=== PATIENT | female | born 1945 | race Caucasian/White ===

== ENCOUNTER 2017-06-26 17:39 | Inpatient (IN) ==
[2017-06-26 18:53] LABS: Basophils % 0.4 %; Eosinophils # 0.1 K/mcL (0.0-0.6); Eosinophils % 1.9 %; Hemoglobin 14.5 g/dL (11.5-15.4); Immature Granulocytes % 0.4 % (0-4); Lymphocytes # 1.2 K/mcL (0.6-4.6); Mean Corpuscular HGB Conc 33.7 g/dL (31.6-35.5); Mean Corpuscular Hemoglobin 29.1 pg (28.0-33.3); Mean Corpuscular Volume 86.2 fL (83.0-100.0); Mean Platelet Volume 9.4 fL (9.4-12.4); Monocytes # 0.9 K/mcL (0.0-1.3); Monocytes % 16.9 %; Platelet Count 300 K/mcL (140-400); Red Blood Count 4.99 M/mcL (3.82-4.97); Red Cell Distribution Width 12.5 % (11.5-14.5); Segmented Neutrophils % 57.4 %
--- NOTE | 2017-06-26 19:15 | Emergency Department Note ---
Disposition Clinical Impression: Small bowel obstruction Disposition: Admitted As Inpatient Condition: Good Time of Disposition: 21:42 General Adult HPI - General Chief complaint: ED Abdominal Pain Stated complaint: Possible bowel obstruction Time Seen by Provider: 06/26/17 18:08 Source: patient Mode of arrival: ambulatory Limitations: no limitations Nursing Notes Reviewed: Yes Vital Signs Reviewed: Yes - History of Present Illness HPI Narrative: 71-year-old female in no significant past medical history presented to the emergency department complaining of abdominal pain. Patient states starting on Sunday she started having diffuse abdominal pain and tenderness. She had one bowel movement that day which was normal for her. She had some nausea as well but no vomiting. She states her abdomen has felt more distended and hard than usual. She continued to have abdominal pain at a 2 out of 10 and today she followed up with her primary care physician. Primary care physician took A in x -ray of the abdomen which showed ileus versus small bowel obstruction was sent here for further workup. Patient states on her way over she had 2-3 loose bowel movements nonbloody. No vomiting. No fever. Pain Scale: 2 - Related Data Allergies Allergy/AdvReac Type Severity Reaction Status Date / Time Penicillins [PCN] Allergy Hives Verified 06/26/17 18:03 All systems ED: reviewed and negative except as stated. Constitutional: Denies: fever, chills Cardiovascular: Denies: chest pain, palpitations Respiratory: Denies: cough, dyspnea, wheezes Gastrointestinal: Reports: abdominal pain, nausea. Denies: vomiting, diarrhea Genitourinary: Denies: urgency, dysuria Integumentary: Denies: rash Neurological: Denies: headache, weakness, numbness, paresthesias Past Medical History - Past Medical History Attestation: Yes The following information was validated with the patient. Medical history: Reports: hyperlipidemia Psychiatric history: Reports: no psych history - Social History Smoking Status: Never smoker Alcohol use: Reports: none Drug use: Reports: none Physical Exam - General Limitations: no limitations General appearance: alert, in no apparent distress - Head Head exam: atraumatic, normocephalic, normal inspection - Eye Eye exam: Present: normal appearance. Absent: scleral icterus, conjunctival injection - ENT ENT exam: normal exam, mucous membranes moist - Neck Neck exam: Present: normal inspection. Absent: tenderness, meningismus - Chest Chest inspection: Present: normal inspection, symmetric chest wall rise. Absent : tenderness, rash - Respiratory Respiratory exam: Present: normal lung sounds bilaterally. Absent: respiratory distress, wheezes - Cardiovascular Cardiovascular exam: Present: regular rate, normal rhythm, normal heart sounds - Abdominal Exam Abdominal exam: Present: tenderness, distention. Absent: guarding, rebound, rigidity Abdominal tenderness: Present: diffuse, mild - Extremities Exam Extremities exam: Present: normal inspection, full ROM - Neurological Exam Neurological exam: Present: alert, oriented X3 - Psychiatric Psychiatric exam: Present: normal affect, normal mood - Skin Skin exam: Present: warm, intact Course Course Narrative: 71-year-old male presenting to the emergency department complaining of abdominal pain. X-ray completed today showed ileus versus small bowel obstruction. Patient does have distended abdomen on physical exam. She is alert and oriented 3 and room stable vital signs at this time. We will perform a CT of the abdomen and pelvis with by mouth and IV contrast along with basic lab work. Disposition pending these results. Patient agrees with this plan. - Reevaluation(s) Reevaluation #1: Patient's CT shows possible SBO. We will place the patient NPO and provide maintenance fluids at this time. Patient is alert and oriented x 3 in the room with stable vital signs. I spoke with the surgeon monomer recovery supervisor who agrees to accept the patient at this time. We will plan to admit the patient at this time. Patient agrees with this plan. Vital Signs Temperature 98.7 F 06/26/17 17:59 Pulse Rate 86 06/26/17 17:59 Respiratory Rate 16 06/26/17 17:59 Blood Pressure 120/77 06/26/17 17:59 O2 Sat by Pulse Oximetry 97 06/26/17 17:59 Temperature 98.1 F 06/26/17 22:31 Pulse Rate 74 06/26/17 22:31 Respiratory Rate 15 06/26/17 22:31 Blood Pressure 118/77 06/26/17 22:31 O2 Sat by Pulse Oximetry 96 06/26/17 22:31 Oxygen Delivery Oxygen Delivery Room Air Medical Decision Making - Lab Data Result diagrams: 06/26/17 18:37 06/26/17 18:37 Lab Results 06/26/17 06/26/17 06/26/17 Range/Units 18:37 18:37 18:37 WBC 5.2 (4.3-11.1) K/mcL RBC 4.99 H (3.82-4.97) M/mcL Hgb 14.5 (11.5-15.4) g/dL Hct 43.0 (35.3-44.9) % MCV 86.2 (83.0-100.0) fL MCH 29.1 (28.0-33.3) pg MCHC 33.7 (31.6-35.5) g/dL RDW 12.5 (11.5-14.5) % Plt Count 300 (140-400) K/mcL MPV 9.4 (9.4-12.4) fL Immature Gran % 0.4 (0-4) % Seg Neutrophils % 57.4 % Lymphocytes % 23.0 % Monocytes % 16.9 % Eosinophils % 1.9 % Basophils % 0.4 % Neutrophils # 3.0 (1.6-8.9) K/mcL Lymphocytes # 1.2 (0.6-4.6) K/mcL Monocytes # 0.9 (0.0-1.3) K/mcL Eosinophils # 0.1 (0.0-0.6) K/mcL Basophils # 0.0 (0.0-0.2) K/mcL Sodium 134 L (136-145) mEq/L Potassium 3.4 L (3.5-5.1) mEq/L Chloride 99 (98-107) mEq/L Carbon Dioxide 28 (23-29) mEq/L BUN 25 H (8-23) mg/dL Creatinine 0.75 (0.60-1.20) mg/dL Est GFR ( Amer) > 60 (> 60) Est GFR (Non-Af Amer) > 60 (> 60) BUN/Creatinine Ratio 33 H (6-26) Glucose 100 (70-105) mg/dL Calculated Osmolality 282 (280-300) Lactic Acid 0.8 (0.5-2.2) mmol/L Calcium 9.0 (8.6-10.3) mg/dL Total Bilirubin 1.2 H (0.3-1.0) mg/dL AST 17 (13-39) Units/L ALT 17 (7-52) Units/L Alkaline Phosphatase 60 (34-104) Units/L Serum Total Protein 6.7 (6.4-8.9) g/dL Albumin 4.0 (3.5-5.7) g/dL Globulin 2.7 (2.4-3.5) g/dL Albumin/Globulin Ratio 1.5 (1.1-2.2) Lipase 15 (11-82) Units/L Attestation Statement - Attestation Attestation: I examined this patient and my medical decision-making was reviewed with the Resident Physician. I agree with the documented findings, disposition and treatment plan as described except to the extent set forth below. Possible small bowel obstruction. Non-peritoneal exam. Discussed case with general surgery and we will proceed with admission for evaluation of small bowel obstruction. No recommendation at this point for NG tube placement as she is not vomiting. She will be admitted in fair condition.
[2017-06-26 19:44] LABS: Alanine Aminotransferase 17 Units/L (7-52); Albumin/Globulin Ratio 1.5 (1.1-2.2); Alkaline Phosphatase 60 Units/L (34-104); Aspartate Amino Transferase 17 Units/L (13-39); BUN/Creatinine Ratio 33 (6-26); Bilirubin,Total 1.2 mg/dL (0.3-1.0); Blood Urea Nitrogen 25 mg/dL (8-23); Carbon Dioxide 28 mEq/L (23-29); Chloride 99 mEq/L (98-107); Globulin 2.7 g/dL (2.4-3.5); Glucose 100 mg/dL (70-105); Lipase 15 Units/L (11-82); Osmolality,Calculated 282 (280-300); Potassium 3.4 mEq/L (3.5-5.1); Sodium 134 mEq/L (136-145); Total Protein 6.7 g/dL (6.4-8.9); eGFR For African Americans > 60 (> 60); eGFR For Non-African Americans > 60 (> 60)
[2017-06-26] MEDS ORDERED: 0.9 % Sodium Chloride 1,000 ML IVC SCH (21:30)
[2017-06-26] MEDS ORDERED: Naloxone 0.4 MG/ML INJ IVP PRN (22:41)
[2017-06-26] MEDS ORDERED: Acetaminophen IV 500 MG/50 ML INFUS..BTL IVPB PRN (22:41)
[2017-06-26] MEDS ORDERED: Ondansetron 4 MG/2 ML VIAL IVP PRN (22:41)
[2017-06-27 06:15] LABS: Basophils % 0.5 %; Eosinophils # 0.1 K/mcL (0.0-0.6); Eosinophils % 2.5 %; Hematocrit 38.4 % (35.3-44.9); Immature Granulocytes % 0.2 % (0-4); Lymphocytes # 0.9 K/mcL (0.6-4.6); Lymphocytes % 22.3 %; Mean Corpuscular HGB Conc 33.3 g/dL (31.6-35.5); Mean Corpuscular Hemoglobin 28.5 pg (28.0-33.3); Mean Corpuscular Volume 85.5 fL (83.0-100.0); Mean Platelet Volume 9.8 fL (9.4-12.4); Monocytes # 0.7 K/mcL (0.0-1.3); Monocytes % 16.4 %; Neutrophils # 2.4 K/mcL (1.6-8.9); Platelet Count 244 K/mcL (140-400); Red Blood Count 4.49 M/mcL (3.82-4.97); Red Cell Distribution Width 12.6 % (11.5-14.5); Segmented Neutrophils % 58.1 %
[2017-06-27 06:23] LABS: Hemoglobin 12.8 g/dL (11.5-15.4)
[2017-06-27 06:39] LABS: BUN/Creatinine Ratio 29 (6-26); Blood Urea Nitrogen 20 mg/dL (8-23); Calcium 8.4 mg/dL (8.6-10.3); Carbon Dioxide 26 mEq/L (23-29); Chloride 101 mEq/L (98-107); Glucose 89 mg/dL (70-105); Osmolality,Calculated 282 (280-300); Potassium 3.3 mEq/L (3.5-5.1); Sodium 135 mEq/L (136-145); eGFR For African Americans > 60 (> 60); eGFR For Non-African Americans > 60 (> 60)
[2017-06-27] MEDS: Pantoprazole 40 MG VIAL IVP SCH (09:05)
[2017-06-27] MEDS: 0.9 % Sodium Chloride 1,000 ML IVC SCH (09:11)
--- NOTE | 2017-06-27 12:39 | General Surg History&Physical ---
Date of Encounter: 06/27/17 Time of Encounter: 11:45 Assessment and Plan (1) Enteritis Current Visit: Yes Status: Acute The assessment and plan as outlined above was discussed with the patient and/or family members who expressed understanding and agreement. All questions were answered. NPO IV fluids Supportive care SBFT today with gastrograffin Pending SBFT results, may advance diet and likely discharge to home in the next 24 hours GI prophylaxis Ambulate hallways (2) Hypokalemia Current Visit: Yes Status: Acute The assessment and plan as outlined above was discussed with the patient and/or family members who expressed understanding and agreement. All questions were answered. Replace potassium (3) DVT prophylaxis Current Visit: Yes Status: Acute The assessment and plan as outlined above was discussed with the patient and/or family members who expressed understanding and agreement. All questions were answered. Ambulate hallways TID History of Present Illness Chief complaint: Abdominal pain HPI: Ms. Pro is a 71 year old female who states that she began having umbilical abdominal discomfort 4 days ago. She states that the pain did progressively worsen and was constant. She reported to her primary care provider yesterday for evaluation of these symptoms. However, she states that her symptoms had significantly improved by the time she was seen yesterday. She states that the pain was located around the umbilicus and she denies any relieving factors. She has never had pain like this in the past. She did have a loss of appetite and nausea but denies any vomiting. She did have a low-grade fever of 99.7. She denies any chills or body aches. She reports that she has had a bowel movement this morning and the stool was loose. She reports flatus. She states that overall she feels much better today. She states that her appetite is coming back and she would like to eat. She denies any difficulty with urination at this time. She initially did have dark urine but states that this is improved with hydration. She has had a CAT scan evaluation which shows moderately dilated small bowel loops and a possible narrowing of the terminal ileum. The patient was admitted to the hospital for further workup and treatment. Past Med Surg Social Fam HX - Past Medical History Source: patient, old records reviewed Medical history: arthritis, cancer (Skin cancer- squamous cell), hyperlipidemia , other (Osteopenia, fibrocystic breasts with calcifications, colon polyps) Psychiatric history: no psych history - Past Surgical History Surgical History: cataract, other (colonoscopy- 07/2013) - Social History Smoking Status: Never smoker Smokeless Tobacco Status: No Alcohol use: none Drug use: none Current living situation: Home - Independent Activity Level: Independent ambulation - Family History Father Living Status: Age at : 68 Cause of : Heart disease Hx Family Cardiac Disorders: Yes Hx Family Cancer: Yes Mother Living Status: Age at : 91 Hx Family Cardiac Disorders: Yes (HTN) Hx Family Neurologic Disorders: Yes (Dementia) Grandmother Living Status: Hx Family Cancer: Yes (Breast cancer) Medications and Allergies Aspirin Enteric Coated [Aspirin EC] 81 mg PO DAILY 06/26/17 [History] Calcium Carbonate/Vitamin D3 [Calcium 600 + Vit D Tablet] 1 each PO DAILY [History] Fluticasone Propionate Nasal [Flonase] 50 mcg NS BID PRN 06/26/17 [History] Multivitamin [One Daily Multivitamin] 1 each PO DAILY 06/26/17 [History] Simvastatin [Zocor] 10 mg PO HS 06/26/17 [History] 3 Allergy/AdvReac Type Severity Reaction Status Date / Time Penicillins [PCN] Allergy Hives Verified 06/26/17 18:03 Review of Systems All systems PM: reviewed and no additional remarkable complaints except as stated (in the HPI) All systems PM: A 10-system review of systems was performed and is negative for pertinent findings except as documented above in the HPI. General Surgery Exam Initial Vital Signs Temp Pulse Resp BP Pulse Ox 98.7 F 86 16 120/77 97 06/26/17 17:59 06/26/17 17:59 06/26/17 17:59 06/26/17 17:59 06/26/17 17:59 - General physical appearance well developed, well nourished, no distress, no pain - Eyes PERRL, normal ocular movement - ENT normal mucosa, atraumatic, normocephalic - Neck trachea midline - Respiratory normal expansion, normal respiratory effort, clear to auscultation - Cardiovascular Cardiovascular exam: Present: RRR - Abdomen Abdomen general surgery: Present: bowel sounds present, soft, non tender - Integumentary Integumentary general surgery: Present: warm and dry, no abnormal pigmentation - Neurologic Present: CN 2-12 grossly intact - Musculoskeletal Present: normal gait, normal posture - Psychiatric Psychiatric general surgery: Present: appropriate, oriented to person, oriented to place, oriented to time, speech is normal, memory intact Results - Labs 06/27/17 05:11 06/27/17 05:11 Abnormal lab results WBC 4.1 K/mcL (4.3-11.1) L 06/27/17 05:11 Sodium 135 mEq/L (136-145) L 06/27/17 05:11 Potassium 3.3 mEq/L (3.5-5.1) L 06/27/17 05:11 BUN/Creatinine Ratio 29 (6-26) H 06/27/17 05:11 Calcium 8.4 mg/dL (8.6-10.3) L 06/27/17 05:11 Total Bilirubin 1.2 mg/dL (0.3-1.0) H 06/26/17 18:37 All other labs normal. - Imaging CT scan - abdomen: report reviewed CT scan - pelvis: report reviewed Additional studies: Abdomen/Pelvis CT 06/26/17 18:21 IMPRESSION: Moderate dilation of multiple loops of small bowel throughout the abdomen, some of which show wall thickening and most of which show associated edema and increased vascularity. Although findings could represent enteritis with ileus, partial small bowel obstruction could be considered given relative narrowing of the distal most ileum. Small moderate amount of free fluid in the pelvis. Small hiatal hernia. D/ / Nishi De La Cruz Cha, MD / Nishi De La Cruz Cha, MD Interpreting Provider: Nishi De La Cruz Cha, MD - Attending Attestation For this encounter, I have reviewed the CORONARY CARE UNIT NURSE or PA documentation, treatment plan, and medical decision making; and I have had face to face time with this patient.
[2017-06-28] MEDS: 0.9 % Sodium Chloride 1,000 ML IVC SCH ×2 (00:34→10:18)
[2017-06-28] MEDS: Pantoprazole 40 MG VIAL IVP SCH (10:23)
[2017-06-28 11:10] VITALS: BP 104/64
--- NOTE | 2017-06-28 13:34 | Discharge Summary ---
<Fela Delvalle - Last Filed: 06/28/17 13:30> Date of Encounter: 06/28/17 Time of Encounter: 13:30 - Discharge Diagnosis (1) Enteritis Priority: Primary Status: Resolved (2) Hypokalemia Priority: Secondary Status: Acute - Discharge Medications Home Medications: Aspirin Enteric Coated [Aspirin EC] 81 mg PO DAILY 06/26/17 [History] Calcium Carbonate/Vitamin D3 [Calcium 600 + Vit D Tablet] 1 each PO DAILY [History] Fluticasone Propionate Nasal [Flonase] 50 mcg NS BID PRN 06/26/17 [History] Multivitamin [One Daily Multivitamin] 1 each PO DAILY 06/26/17 [History] Simvastatin [Zocor] 10 mg PO HS 06/26/17 [History] Allergies/Adverse Reactions: 3 Allergy/AdvReac Type Severity Reaction Status Date / Time Penicillins [PCN] Allergy Hives Verified 06/26/17 18:03 General Surgery Exam Initial Vital Signs Temp Pulse Resp BP Pulse Ox 98.7 F 86 16 120/77 97 06/26/17 17:59 06/26/17 17:59 06/26/17 17:59 06/26/17 17:59 06/26/17 17:59 - General physical appearance well developed, well nourished, no distress, no pain - Eyes normal ocular movement - ENT normal mucosa, atraumatic, normocephalic - Neck trachea midline - Respiratory normal respiratory effort - Cardiovascular Cardiovascular exam: Present: RRR - Abdomen Abdomen general surgery: Present: bowel sounds present, soft, non tender - Integumentary Integumentary general surgery: Present: warm and dry - Neurologic Present: CN 2-12 grossly intact - Musculoskeletal Present: normal gait, normal posture - Psychiatric Psychiatric general surgery: Present: appropriate, oriented to person, oriented to place, oriented to time, speech is normal, memory intact Date of admission: 06/27/17 10:46 Primary care physician: Tim Pollack Discharging clinician: Joyce Silvestre (Ethel Delvalle) Anticipated date of discharge: 06/28/17 - Patient Status Disposition: Home, Self-Care Condition: Good Overall status at discharge: patient is progressing back to baseline - Discharge Instructions Instructions: Bowel Obstruction (DC) Follow Up With: Keira Marrufo, PRESS OPERATOR [employer] [Advanced Practice Nurse] - 07/04/17 1:00 pm - Diet and Activity Activity: increase activity as tolerated Diet: advance to your usual diet - Hospital Course Hospital course: Ms. Pro is a 71 year old female who was admitted to the hospital for an abnormal CT of the abdomen and pelvis. She was admitted and treated for partial small bowel obstruction. The patient was treated with conservative measures including IV fluids, bowel rest, supportive care. We did complete a small bowel follow-through which shows no evidence of ongoing bowel obstruction. The patient was started on clear liquid diet and she tolerated this without nausea or vomiting. She denies any abdominal pain today. She has had a follow-up two-view abdominal x-ray which shows passage of contrast through the colon. The patient's vital signs are stable and she is afebrile. We will begin discharge planning to home and plan for outpatient follow-up with her PCP in the next 1-2 weeks. - Time Spent with Patient Total time spent providing and/or coordinating discharge services: Less than 30 minutes Labs on day of discharge: Labs from last 24 hours 06/27/17 11:11 POC Glucose 87 - Impressions ITS Impressions Small Bowel X-Ray 06/27/17 11:51 IMPRESSION: Low-grade partial small-bowel obstruction versus ileus. Recommend follow-up radiographic imaging. D/ / 06/27/2017 14:52:12 Declan Davis MD / vinay Interpreting Provider: Declan Davis MD Abdomen X-Ray 06/28/17 07:00 IMPRESSION: The colon is partially filled with contrast. Nonspecific nonobstructive bowel gas pattern. No evidence of pneumoperitoneum. D/ / Edgar Barba MD / Edgar Barba MD Interpreting Provider: Edgar Barba MD - Attending Attestation For this encounter, I have reviewed the CRAB PICKER or PA documentation, treatment plan, and medical decision making; and I have had face to face time with this patient. <Joyce Silvestre - Last Filed: 06/29/17 14:01> Date of Encounter: 06/28/17 - Discharge Diagnosis (1) Small bowel obstruction Priority: Primary Status: Acute (2) Abdominal pain Priority: Secondary Status: Acute Qualifiers: Abdominal location: generalized Qualified Code(s): R10.84 - Generalized abdominal pain General Surgery Exam Initial Vital Signs Temp Pulse Resp BP Pulse Ox 98.7 F 86 16 120/77 97 06/26/17 17:59 06/26/17 17:59 06/26/17 17:59 06/26/17 17:59 06/26/17 17:59 - General physical appearance well developed, well nourished, no distress, no pain - Eyes PERRL, normal ocular movement - ENT normal mucosa, normocephalic - Neck trachea midline - Respiratory normal expansion, normal respiratory effort - Cardiovascular Cardiovascular exam: Present: RRR - Abdomen Abdomen general surgery: Present: soft, non tender. Absent: distended, guarding , rebound - Integumentary Integumentary general surgery: Present: warm and dry, no abnormal pigmentation - Neurologic Present: CN 2-12 grossly intact - Musculoskeletal Present: normal posture - Psychiatric Psychiatric general surgery: Present: A&Ox3, memory intact Date of admission: 06/27/17 10:46 Primary care physician: Tim Pollack - Hospital Course Hospital course: Ms. Pro is a 71 year old female - Time Spent with Patient Total time spent providing and/or coordinating discharge services: Procedures and tests throughout hospitalization: Abdomen/Pelvis CT 06/26/17 18:21 IMPRESSION: Moderate dilation of multiple loops of small bowel throughout the abdomen, some of which show wall thickening and most of which show associated edema and increased vascularity. Although findings could represent enteritis with ileus, partial small bowel obstruction could be considered given relative narrowing of the distal most ileum. Small moderate amount of free fluid in the pelvis. Small hiatal hernia. D/ / Nishi De La Cruz Cha, MD / Nishi De La Cruz Cha, MD Interpreting Provider: Nishi De La Cruz Cha, MD Small Bowel X-Ray 06/27/17 11:51 IMPRESSION: Low-grade partial small-bowel obstruction versus ileus. Recommend follow-up radiographic imaging. D/ / 06/27/2017 14:52:12 Declan Davis MD / vinay Interpreting Provider: Declan Davis MD Abdomen X-Ray 06/28/17 07:00 IMPRESSION: The colon is partially filled with contrast. Nonspecific nonobstructive bowel gas pattern. No evidence of pneumoperitoneum. D/ / Edgar Barba MD / Edgar Barba MD Interpreting Provider: Edgar Barba MD - Impressions ITS Impressions Small Bowel X-Ray 06/27/17 11:51 IMPRESSION: Low-grade partial small-bowel obstruction versus ileus. Recommend follow-up radiographic imaging. D/ / 06/27/2017 14:52:12 Declan Davis MD / vinay Interpreting Provider: Declan Davis MD Abdomen X-Ray 06/28/17 07:00 IMPRESSION: The colon is partially filled with contrast. Nonspecific nonobstructive bowel gas pattern. No evidence of pneumoperitoneum. D/ / Edgar Barba MD / Edgar Barba MD Interpreting Provider: Edgar Barba MD - Attending Attestation I have personally performed a face to face evaluation on this patient. I have reviewed and agree with the care plan. History and Exam by me shows:
== END 2017-06-28 16:08 | disposition home or self-care (01) | DRG 390 ==
LOC: EMEROO 17:39 → INTOOBSV 21:55 → 3ANU 21:55
PROVIDERS: ADMIT Surgery; ATTEND Surgery